=== PATIENT | female | born 1925 | race Caucasian/White ===

== ENCOUNTER 2016-06-16 13:25 | Outpatient (CLI) | payer MEDICARE, OTHER ==
[2016-06-16 13:20] VITALS: BP 90/64; PULSE 105; RESP 20
[2016-06-16] MEDS ORDERED: DOCU-144 PO (13:38)
[2016-06-16] MEDS ORDERED: OMEG500C3 PO (13:38)
[2016-06-16] MEDS ORDERED: CEPH-443 PO (13:38)
[2016-06-16] MEDS ORDERED: ATOR10TA65 PO (13:38)
[2016-06-16] MEDS ORDERED: OMEP40CA6 PO (13:38)
[2016-06-16] MEDS ORDERED: CELE200C PO (13:38)
[2016-06-16] MEDS ORDERED: FURO40TA4 PO (13:38)
[2016-06-16] MEDS ORDERED: WARF2TAB PO (13:38)
[2016-06-16] MEDS ORDERED: LISI20TA11 PO (13:38)
[2016-06-16] MEDS ORDERED: POTA8CAP PO (13:38)
--- NOTE | 2016-06-16 16:57 | PN ---
Date/Time of Note Date/Time of Note DATE: 06/16/16 TIME: 16:18 Assessment/Plan Assessment/Plan Assessment/Plan [facility] Progress Note Date of Service: 06/16/2016 Today's Impression & Plan: Stable. Main decubitus ulcer in the mid lower back clean and healing, all be it slowly given her clinical situation. 2 new areas of pressure ulcers are developing, a small one in the left hip area, approximately 1 cm in dimension; another bigger 3 cm area and more advanced has developed on the right hip area. These areas need debridement. In addition, there are social and economical issues involved with her care and family reported their unhappiness about the care they perceive to be receiving from the wound care/nursing agency. Overall, patient can benefit from inpatient care to attend to the the two new areas, plastic surgery consultation for possible options to expedite the healing, wound vac application to affected areas to start alessandro, and overall social support for the patient and family. Explained to patient's family (sister and brother). With above management, I recommended the followin. Schedule for I&D of left and right hip skin area decubitus ulcers 2. Wound vac application to mid lower back wound 3. Plastic surgery consultation to consider surgical options (? rotational flap and timing of intervention) 4. Possible need for referral to different wound care agency per family's request Thank you very much for allowing us to participate in the care of this very nice patient and wonderful family. If there are any questions, please feel free to contact me at . Total visit time: 20 minutes, of which more than half was spent in [id number] discussion with the patient, possibly including time to discuss issues with family, as well as coordination of care with multiple other physicians and providers. Please note: Spelling or grammatical errors in this note are likely due to EHR/ dictation systems and are not reflective of patient care quality. Also please note that the dictation timestamp of this note does not necessarily reflected time of the visit for this service. Updated clinical summary: The patient is a very pleasant 89-year-old lady admitted to [facility] 04/30/2016 for emesis. S/p PEG 05/11/16. Stage IV ulcer was noted on the mid lower back and needed debridement. Patient herself could not give consent and for this reason I discussed my findings and recommendations with the patient's family. I spent quite a bit of time with patient and family describing our findings, the anatomy of the region, as well as the natural history and pathophysiology of this disease in detail. I recommended excisional debridement of this area when medically stable, and reviewed the risks, benefits , and alternatives of the procedure with patient's family in detail. After careful consideration the above, the patient's family appeared to understand their risks, benefits and alternatives, and agreed proceed with surgery. An otherwise uncomplicated excisional debridement of a 5 x 4 x 1.5 cm deep stage IV pressure ulcer with removal of approximately 3 g of tissue with scissors was performed on 05/14/16. Comorbidities: 1. Stage IV lower midline back pressure ulcer, 5 x 4 x 1.5 cm. Excisional debridement of a 5 x 4 x 1.5 cm deep stage IV pressure ulcer with removal of approximately 3 g of tissue with scissors on 05/14/16 2. Hypertension 3. History of IVC filter 4. On antiacid 5. On anticoagulation secondary to atrial fibrillation 6. Hemorrhagic stroke 7 years ago; bedbound; left-sided weakness 7. History of bloody emesis 8. History of severe constipation and fecal impaction 9. History of bradycardia 10. History of urinary tract infection 11. Dementia 12. Degenerative changes of the spine with scoliosis 13. Calcified atherosclerosis in the arterial vasculature 14. Nonspecific mild focal dilatation of the distal third of the left ureter 15. Hypercholesterolemia Subjective: No major reported events or complaints since discharge. Family reports pain, but unclear location or etiology. No reported N/V and patient receiving ordered tube feeding through her feeding J-tube. No reported SOB or CP. + bowel activity ; patient herself essentially non-communicative but does attempt speaking. Objective: Vitals: reviewed; please also see EHR Physical Exam: Lungs: breathing comfortably without tachypnea; no audible wheezes, rales or rhonchi on gross exam Abd: Soft, non-tender, and non-distended; no peritoneal signs or guarding Skin: Appears pink and feels warm to touch. Dressings on the back are clean and dry and intact. Inside the wound, there is nice pink granulation tissue and no evidence of infection. Size is fairly similar to post op, approximately 5 cm skin opening with underlying cavity of another 3-4 cm in a caudal direction. 2 new areas of pressure ulcers are developing, a small one in the left hip area, approximately 1 cm in dimension (stage 2); another bigger 3 cm area and more advanced (stage 3) has developed on the right hip area. Neuro: Awake and not following commands appropriately; minimally interactive; combination of age, comorbidities, language barriers, among others Exam/Review of Systems Vital Signs Vitals Vital Signs Date Time Temp Pulse Resp B/P Pulse Ox O2 Delivery O2 Flow Rate FiO2 06/16/16 13:20 98.8 105 20 90/64 94 Room Air ANGELA BARRIOS M.D. Jun 16, 2016 16:33
== END 2016-06-16 16:48 | disposition home or self-care (01) ==
LOC: HPC 13:25
PROVIDERS: ATTEND Transplant Surgery
DX: L89.144 Pressure ulcer of left lower back, stage 4 (principal); I10 Essential (primary) hypertension; I48.91 Unspecified atrial fibrillation; F03.90 Unspecified dementia, unspecified severity, without behavioral disturbance, psychotic disturbance, mood disturbance, and anxiety; M41.9 Scoliosis, unspecified; E78.00 Pure hypercholesterolemia, unspecified; I70.209 Unspecified atherosclerosis of native arteries of extremities, unspecified extremity; Z87.440 Personal history of urinary (tract) infections; Z86.73 Personal history of transient ischemic attack (TIA), and cerebral infarction without residual deficits
CPT/HCPCS: G0463